=== PATIENT | female | born 2000 | race Caucasian/White ===

== ENCOUNTER 2018-07-15 23:13 | Emergency (ER) | payer OTHER, SELFPAY ==
[2018-07-15 23:14] VITALS: BP 110/73; PULSE 75; PULSE 77; RESP 14; TEMP 36.3; O2SAT 100; BMI 21.9
[2018-07-15] MEDS: Fluorescein 1 MG STRIP 1 STRIP LEFT EYE (23:35)
[2018-07-15] MEDS: Ondansetron ODT 4 MG Tablet PO (23:35)
[2018-07-15] MEDS: Tetracaine 0.5% Ophthalmic Bottle 5 DRP LEFT EYE (23:36)
--- NOTE | 2018-07-15 23:41 | ED.VISSUMM ---
- ER Visit Summary Date of Service: 07/15/18 Chief Complaint: Abdominal discomfort and left eye irritation History of Present Illness: The patient is a 18 F past medical history of depression. 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 She was using someone else's case that had a hydrogen peroxide in it and when she placed a contact in her eye today and caused irritation. She also has a gluten sensitivity and today had gluten in some of the food she ate and since that time is had some crampy abdominal discomfort. Mild nausea. No vomiting. No diarrhea. No fever. States her last menstrual period was July 05. She denies any urinary symptoms. No back pain or fever. She has never had any abdominal surgeries. Physical Examination: Well-appearing young female. No acute distress. Vital signs are stable and afebrile. H EENT exam pupils are round reactive light. Upper and lower lids bilaterally are normal though not the left show no abnormality. Left eye is injected and watering. There is no pus or discharge. No swelling. Extraocular motions are intact. There is no proptosis. No preauricular lymphadenopathy. No orbital neck nontender. Lungs. Abdomen is soft. Nondistended. Normal bowel sounds no peritoneal signs. She has minimal tenderness diffusely. Distended. There is no hernias or masses. No signs of obstruction. Positive bowel sounds. Patient is moving all 4 extremities. They are neurovascularly intact. Neurologically she is awake and alert. Slit-lamp examination was done the left eye. Tetracaine was instilled in the left eye. And then fluorescein stained. Action. There are no signs of trauma to the eye. No corneal abrasion. No foreign bodies. No ulcer. Test Results: None Emergency Department Course and Treatment: Patient given p.o. Zofran for her nausea. Clinically I do not feel the patient needs any type of workup. Or imaging. Treatment Plan: Zofran home pack. Leave her contacts out to the left eye irritation resolves. Follow-up with [facility] if not improving. Disposition: Discharge Impression: Conjunctivitis secondary to chemicals Abdominal cramping secondary to gluten sensitivity This note was generated with [employer] dictation software. It may contain incorrect words, spelling, and punctuation that were not noted in review of the chart prior to signing ED Disposition - Plan for ED Patient: Chief Complaint: Abd Pain Referrals: NOT,DEFINED [Primary Care Provider] -
--- NOTE | 2018-07-15 23:45 | ED.DCSUM_ITS ---
- ER Visit Summary Date of Service: 07/15/18 Chief Complaint: Abdominal discomfort and left eye irritation History of Present Illness: The patient is a 18 F past medical history of depression. 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 She was using someone else's case that had a hydrogen peroxide in it and when she placed a contact in her eye today and caused irritation. She also has a gluten sensitivity and today had gluten in some of the food she ate and since that time is had some crampy abdominal discomfort. Mild nausea. No vomiting. No diarrhea. No fever. States her last menstrual period was July 05. She denies any urinary symptoms. No back pain or fever. She has never had any abdominal surgeries. Physical Examination: Well-appearing young female. No acute distress. Vital signs are stable and afebrile. H EENT exam pupils are round reactive light. Upper and lower lids bilaterally are normal though not the left show no abnormality. Left eye is injected and watering. There is no pus or discharge. No swelling. Extraocular motions are intact. There is no proptosis. No preauricular lymphadenopathy. No orbital neck nontender. Lungs. Abdomen is soft. Nondistended. Normal bowel sounds no peritoneal signs. She has minimal tenderness diffusely. Distended. There is no hernias or masses. No signs of obstruction. Positive bowel sounds. Patient is moving all 4 extremities. They are neurovascularly intact. Neurologically she is awake and alert. Slit-lamp examination was done the left eye. Tetracaine was instilled in the left eye. And then fluorescein stained. Action. There are no signs of trauma to the eye. No corneal abrasion. No foreign bodies. No ulcer. Test Results: None Emergency Department Course and Treatment: Patient given p.o. Zofran for her nausea. Clinically I do not feel the patient needs any type of workup. Or imaging. Treatment Plan: Zofran home pack. Leave her contacts out to the left eye irritation resolves. Follow-up with [facility] if not improving. Disposition: Discharge Impression: Conjunctivitis secondary to chemicals Abdominal cramping secondary to gluten sensitivity This note was generated with [employer] dictation software. It may contain incorrect words, spelling, and punctuation that were not noted in review of the chart prior to signing ED Disposition - Plan for ED Patient: Chief Complaint: Abd Pain Referrals: NOT,DEFINED [Primary Care Provider] -
--- NOTE | 2018-07-15 23:45 | ED.DEP ---
ED Disposition - Plan for ED Patient: Disposition: Home or Assisted Living Chief Complaint: Abd Pain Instructions: Celiac Disease, ED Chemical Conjunctivitis Referrals: Noel Schroeder MD [STAFF PHYSICIAN] - 3-5 Days if not improving Additional Instructions: No contact lens use until left eye redness has resolved. Dominant cramping should improve over the next 24-48 hours. If you develop fever or worsening abdominal pain return.
[2018-07-16] MEDS: Ondansetron ODT 4 MG Tablet PO (00:01)
[2018-07-16 00:03] VITALS: RESP 16
== END 2018-07-16 00:04 | disposition home or self-care (01) ==
PROVIDERS: Emergency Provider Emergency Medicine
DX: H10.212 Acute toxic conjunctivitis, left eye (principal); T49.0X5A Adverse effect of local antifungal, anti-infective and anti-inflammatory drugs, initial encounter; Y92.9 Unspecified place or not applicable; R10.9 Unspecified abdominal pain; K90.41 Non-celiac gluten sensitivity; F32.9 Major depressive disorder, single episode, unspecified; Z79.899 Other long term (current) drug therapy
CPT/HCPCS: 99283

== ENCOUNTER 2018-10-17 06:47 | Emergency (ER) | payer OTHER, SELFPAY ==
[2018-10-17 06:48] VITALS: BP 121/78; PULSE 73; RESP 18; TEMP 36.5; O2SAT 100; BMI 21.2
[2018-10-17 07:31] LABS: Bacteria 0 SEEN /hpf (None Seen); Mucous, Urine 0 SEEN /hpf (<or=2+)
[2018-10-17 07:34] LABS: Color, Urine Yellow (Yellow); Glucose, Dipstick Normal (Normal); Ketone-Dipstick Negative (Negative); Leukocyte Esterase-Dipstick 25 /ul (Negative); Nitrite-Dipstick Negative (Negative); Occult Blood-Urine 250 /ul (Negative); Protein-Dipstick 15 mg/dl (Negative); Specific Gravity, Urine 1.015 (1.002-1.030); Urine Bilirubin Dipstick Negative (Negative); Urine Clarity Sl. Cloudy (Clear); Urine Urobilinogen Normal (Normal)
[2018-10-17] MEDS: Ibuprofen 400 MG Tablet 800 MG PO (07:36)
[2018-10-17 07:40] LABS: Red Blood Cells-Urine 25-50 SEEN /hpf (0-5); Squamous Epithelial Cells - UA 0-5 SEEN /hpf (5-10); White Blood Cells 0-5 SEEN /hpf (0-5)
[2018-10-17 07:44] LABS: Pregnancy, Serum, hCG Quali. NEGATIVE Negative (0-9 Nonpreg)
--- NOTE | 2018-10-17 07:58 | ED.DCSUM_ITS ---
- ER Visit Summary Date of Service: 10/17/18 Chief Complaint: [Pelvic pain] History of Present Illness: The patient is a 18 F [presents to the emergency department complaint of pelvic pain that started 2 hours ago. Patient states that she woke up with severe cramping and noted that she had started her period. Patient states that she has had painful periods like this multiple times in the past. Patient does not think she is as her last menstrual period was about 1 month ago. Patient denies any fever or vomiting. She denies urinary symptoms. Patient describes the pain is diffusely throughout her abdomen and also into her back. She denies any blood in her stool or black tarry stools. Patient is never been .] Physical Examination: [HEENT-PERRLA, EOMI. Cranial nerves II through XII grossly intact. TMs clear. Mucous membranes moist. No adenopathy. Cardiovascular-regular rate and rhythm without murmur or ectopy Lungs-clear to auscultation, chest wall stable without crepitus or subcu emphysema Abdomen-normoactive bowel sounds, soft. Patient has some diffuse tenderness on exam with guarding however there is no rebound, rigidity, or perineal signs. Pain seems out of proportion to exam as even lightly touching the skin causes her severe pain. Extremities-intact ?4, normal range of motion, normal pulses, atraumatic] Test Results: [HCG serum was negative. Urinalysis showed blood without signs of infection and patient is currently on her menstrual period.] Emergency Department Course and Treatment: [Patient was ordered IV Toradol however she refused the IV and therefore was given 800 mg of ibuprofen.] Treatment Plan: [Patient will be given a prescription for ibuprofen and small amount of [place] for severe pain. Patient will be given [employer] referral] Disposition: [Discharged home in stable condition] Impression: [Painful menstrual period] This note was generated with [employer] dictation software. It may contain incorrect words, spelling, and punctuation that were not noted in review of the chart prior to signing ED Disposition - Plan for ED Patient: Chief Complaint: Female C/O Referrals: Care Physician,No Primary [Primary Care Provider] -
--- NOTE | 2018-10-17 07:58 | ED.DEP ---
ED Disposition - Plan for ED Patient: Chief Complaint: Female C/O Instructions: ED Cramping Menstrual Prescriptions: Hydrocodone Bitart/Apap 5-325 [[place] 5MG-325MG] 1 tab PO Q4H PRN PRN 2 Days #6 tab PRN Reason: Pain Ibuprofen [Motrin] 800 mg PO TID PRN PRN #20 tab PRN Reason: Pain Referrals: Care Physician,No Primary [Primary Care Provider] - Cece Sapp MD [STAFF PHYSICIAN] - 3-5 Days
--- NOTE | 2018-10-17 08:01 | DCINST.ED_ITS ---
ED Disposition - Plan for ED Patient: Chief Complaint: Female C/O Instructions: ED Cramping Menstrual Prescriptions: Hydrocodone Bitart/Apap 5-325 [[place] 5MG-325MG] 1 tab PO Q4H PRN PRN 2 Days #6 tab PRN Reason: Pain Ibuprofen [Motrin] 800 mg PO TID PRN PRN #20 tab PRN Reason: Pain Referrals: Care Physician,No Primary [Primary Care Provider] - Cece Sapp MD [STAFF PHYSICIAN] - 3-5 Days
[2018-10-17 08:06] VITALS: PULSE 77; RESP 17; O2SAT 100
== END 2018-10-17 08:08 | disposition home or self-care (01) ==
PROVIDERS: Emergency Provider Emergency Medicine
DX: N94.6 Dysmenorrhea, unspecified (principal)
CPT/HCPCS: 36415; 81001; 84703; 99284

== ENCOUNTER → 2018-12-20 14:04 | Outpatient (CLI) | payer OTHER, SELFPAY ==
[2018-12-20 16:02] LABS: Internal QC Validated? YES +Cl - CLEAR BKGD; Pregnancy, Urine Negative Negative
== END ==
PROVIDERS: Referring Provider Dermatology Pediatric Dermatology; Visit Provider Dermatology Pediatric Dermatology
DX: L70.0 Acne vulgaris (principal); Z79.899 Other long term (current) drug therapy
CPT/HCPCS: 81025

== ENCOUNTER → 2019-01-29 | Outpatient (CLI) | payer OTHER, SELFPAY ==
[2019-01-29 15:22] LABS: Internal QC Validated? YES +Cl - CLEAR BKGD; Pregnancy, Urine Negative Negative
== END | disposition home or self-care (01) ==
PROVIDERS: Referring Provider Dermatology Pediatric Dermatology; Visit Provider Dermatology Pediatric Dermatology
DX: L70.0 Acne vulgaris (principal)
CPT/HCPCS: 81025

== ENCOUNTER → 2019-03-06 | Outpatient (CLI) | payer OTHER, SELFPAY ==
[2019-03-06 18:09] LABS: Internal QC Validated? YES +Cl - CLEAR BKGD
[2019-03-06 18:10] LABS: Pregnancy, Urine Negative Negative
== END | disposition home or self-care (01) ==
LOC: MTLAB 15:25
PROVIDERS: Referring Provider Physician Assistant; Visit Provider Physician Assistant
DX: L70.0 Acne vulgaris (principal); Z79.899 Other long term (current) drug therapy
CPT/HCPCS: 81025

== ENCOUNTER → 2019-04-10 | Outpatient (CLI) | payer OTHER, SELFPAY ==
[2019-04-10 12:25] LABS: Internal QC Validated? YES +Cl - CLEAR BKGD; Pregnancy, Urine Negative Negative
== END | disposition home or self-care (01) ==
LOC: MTLAB 11:01
PROVIDERS: Referring Provider Physician Assistant; Visit Provider Physician Assistant
DX: L70.0 Acne vulgaris (principal); Z79.899 Other long term (current) drug therapy
CPT/HCPCS: 81025

== ENCOUNTER → 2019-05-15 | Outpatient (CLI) | payer OTHER, SELFPAY ==
[2019-05-15 17:32] LABS: Internal QC Validated? YES +Cl - CLEAR BKGD; Pregnancy, Urine Negative Negative
== END | disposition home or self-care (01) ==
LOC: MTLAB 16:52
PROVIDERS: Referring Provider Physician Assistant; Visit Provider Physician Assistant
DX: L70.0 Acne vulgaris (principal); Z79.899 Other long term (current) drug therapy
CPT/HCPCS: 81025

== ENCOUNTER → 2019-06-20 11:20 | Outpatient (CLI) | payer OTHER, SELFPAY ==
[2019-06-20 14:02] LABS: Internal QC Validated? YES +Cl - CLEAR BKGD; Pregnancy, Urine Negative Negative
== END ==
PROVIDERS: Referring Provider Physician Assistant; Visit Provider Physician Assistant
DX: L70.0 Acne vulgaris (principal); Z79.899 Other long term (current) drug therapy
CPT/HCPCS: 81025

== ENCOUNTER → 2019-07-23 16:30 | Outpatient (CLI) | payer OTHER, SELFPAY ==
[2019-07-23 18:10] LABS: Internal QC Validated? YES +Cl - CLEAR BKGD; Pregnancy, Urine Negative Negative
== END ==
PROVIDERS: Referring Provider Dermatology; Visit Provider Dermatology
DX: L70.0 Acne vulgaris (principal); Z79.899 Other long term (current) drug therapy
CPT/HCPCS: 81025

== ENCOUNTER 2020-01-15 09:00 | Outpatient (RCR) | payer OTHER, SELFPAY ==
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
--- NOTE | 2020-01-15 10:13 | BH.SGPN.GN ---
Behaviors/Verbalizations/Mental Status: []]Client alert and oriented, casually dressed and appropriately groomed. Eye contact good. Motor activity appropriate. Speech WNL. Affect congruent, mood dysthymic. Thoughts linear, logical, no signs of hallucinations or delusions. Client Response/Progress/Benefit: []Client active participant as evidenced by providing input throughout discussion and taking notes during psychoeducation. Client shared that she gets paranoid thoughts and thinks ?people are against me.? Client connected with the discussion about how distorted thought patterns can reinforce mental health symptoms and impact relationships. Client noted that she connects with jumping to conclusions, mental filter, disqualifying the positives, and overgeneralizing. Client reported ?I notice the negatives a lot more than I notice the positives.? Client shared it takes intention to focus on the positives rather than the negatives. Appeared to benefit from increasing awareness of cognitive distortions and how they can impact emotions and behaviors. Client reported today that she will be moving back home to [place] and will be discharging from [facility] today. Narrative Note: []
[2020-01-15 10:50] VITALS: BP 94/60; PULSE 72; RESP 14
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
--- NOTE | 2020-01-15 12:03 | BH.DR.ITP ---
Initial Treatment Plan - Patient Information Visit Information: ADMISSION DATE: EXPECTED LOS: 4-6 weeks - Problems/Symptoms Problem #1:: Depression Symptom:: Sadness, crying, rumination, worthlessness Problem #2:: Anxiety Symptom:: Worry, panic attacks, avoidance, exaggerated startle, re-experiencing, nightmares
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
== END 2020-01-15 14:00 | disposition home or self-care (01) ==
LOC: BHIOP 09:00
PROVIDERS: Referring Provider Psychiatry & Neurology Psychiatry; Visit Provider Psychiatry & Neurology Psychiatry
DX: F33.2 Major depressive disorder, recurrent severe without psychotic features (principal); F43.10 Post-traumatic stress disorder, unspecified; K90.0 Celiac disease; Z79.899 Other long term (current) drug therapy; Z62.810 Personal history of physical and sexual abuse in childhood; Z62.812 Personal history of neglect in childhood; Z62.819 Personal history of unspecified abuse in childhood; Z91.410 Personal history of adult physical and sexual abuse
CPT/HCPCS: H0035; 90853

== ENCOUNTER → 2020-03-11 11:55 | Outpatient (CLI) | payer OTHER, SELFPAY ==
[2020-03-11 15:43] LABS: Hematocrit 39.3 % (37-47); Hemoglobin 12.6 g/dL (12.0-15.0); Mean Corp Hgb Conc 32.1 g/dL (32-36); Mean Corpuscular Volume 90.6 fL (81-99); Mean Platelet Vol. 12.3 fl (6.2-12.0); Platelet Count 254 K/mm3 (150-450); RBC Distribution Width CV 13.2 % (11.6-14.6); RBC Distribution Width SD 43.8 fl (35.1-43.9); Red Blood Count 4.34 M/mm3 (4.2-5.4); White Blood Count 5.9 K/mm3 (4.4-11.0)
[2020-03-11 16:24] LABS: Hemoglobin A1c 5.2 % (3.8-5.6)
[2020-03-11 16:31] LABS: AST(SGOT) 19 U/L (15-37); Alanine Aminotransfer ALT/SGPT 20 U/L (13-56); Anion Gap 7 (5-15); BUN 9 mg/dL (7-18); BUN/Creat Ratio 11.6 RATIO (10-20); Chloride 107 mmol/L (98-107); Cholesterol 216 mg/dL (200); Creatinine, Serum 0.77 mg/dL (0.55-1.02); EST Glomerular Filtration Rate 99 mL/min (>60); Est Glom Filt Rate - Afr Amer 120 mL/min (>60); Glucose 80 mg/dL (74-106); High Density Lipoprotein 68 mg/dL; Potassium 3.8 mmol/L (3.5-5.1); Sodium Level 139 mmol/L (136-145); Thyroid Stim Hormone (TSH) 2.66 uIU/mL (0.358-3.74); Triglycerides 143 mg/dL; Very Low Density Lipoprotein 29 mg/dL (5-40)
== END ==
DX: Z79.899 Other long term (current) drug therapy (principal)
CPT/HCPCS: 36415; 80048; 80061; 83036; 84443; 84450; 84460; 85027